=== PATIENT | male | born 1975 | race Asian ===

== ENCOUNTER 2016-11-08 18:47 | Emergency (ER) | payer OTHER ==
[2016-11-08 21:48] VITALS: BP 132/101
== END 2016-11-08 21:48 | disposition home or self-care (01) ==
LOC: ED 18:47
DX: S60.922A Unspecified superficial injury of left hand, initial encounter (principal); Z88.6 Allergy status to analgesic agent; X58.XXXA Exposure to other specified factors, initial encounter; Y93.89 Activity, other specified; Y99.8 Other external cause status; Y92.89 Other specified places as the place of occurrence of the external cause